=== PATIENT | male | born 1970 | race Caucasian/White ===

== ENCOUNTER 2017-03-05 16:56 | Emergency (ER) | payer BC ==
[2017-03-05] MEDS ORDERED: HYDROcodone 5MG/APAP 325MG 1 EA TAB PO ONE (17:11)
--- NOTE | 2017-03-05 17:12 | ED.PDOC ---
History of Present Illness - General Chief Complaint: Upper Extremity Injury Stated Complaint: right elbow pain Time Seen by Provider: 03/05/17 17:08 Source: patient, RN notes reviewed, Vital Signs reviewed Additional Information: Got trampled by some cattle yesterday. Has right elbow pain/swelling x 1 day. Small abrasion to right elbow as well. Otherwise, no complaints. - History of Present Illness Occurred: yesterday Pain - Upper Extremity: moderate: Elbow, right Method of Injury: direct blow Improving Factors: immobilization Worsening Factors: movement Allergies/Adverse Reactions: Allergies NO KNOWN ALLERGY Allergy (Verified 08/30/15 16:22) Home Medications: Ambulatory Orders Clonidine HCl 03/05/17 Flexeril 03/05/17 Florinef 03/05/17 Hydrocortisone 03/05/17 Review of Systems - Review of Systems Constitutional: States: no symptoms reported EENTM: States: no symptoms reported Respiratory: States: no symptoms reported Cardiology: States: no symptoms reported Gastrointestinal/Abdominal: States: no symptoms reported Genitourinary: States: no symptoms reported Musculoskeletal: States: see HPI Skin: States: no symptoms reported - -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 Neurological: States: no symptoms reported Endocrine: States: no symptoms reported Hematologic/Lymphatic: States: no symptoms reported Past Medical History (General) - Patient Medical History Hx Congestive Heart Failure: No Hx Hypertension: Yes Hx Diabetes: No Hx Other PMH: Yes - Tarrant's - Social History Hx Tobacco Use: Yes Hx Alcohol Use: No Hx Substance Use: No Hx Substance Use Treatment: No Hx Depression: No Family Medical History - Family History Mother Living Status: Still Living Hx Family Stroke: Yes Hx Family;Other: Lupus Father Family History: No Known Living Status: Still Living Physical Exam - Physical Exam General Appearance: Alert, Comfortable, No apparent distress, Well Developed, Well Groomed, Well Hydrated, Well Nourished Eyes, Ears, Nose, Throat Exam: PERRL/EOMI, normal ENT inspection, pharynx normal Neck: non-tender, full range of motion, supple, normal inspection Cardiovascular/Respiratory: normal peripheral pulses, no respiratory distress Abdominal Exam: non-tender Shoulder Exam: normal inspection, non-tender, no evidence of injury, normal ROM Elbow/Forearm Exam: bone tenderness - Right Elbow, limited ROM - Right Elbow - due to pain/swelling, soft tissue tenderness - Right Elbow, swelling - Right Elbow Wrist Exam: normal inspection, non-tender, no evidence of injury, normal ROM Hand Exam: normal inspection, non-tender, no evidence of injury, normal ROM Neuro/Tendon: normal sensation, normal motor functions, normal tendon functions , responds to pain, no evidence tendon injury Mental Status: alert, oriented x 3 Progress - Progress Progress: 03/05/17 19:19 X-ray negative for fracture/dislocation. Suspect contusion. Will treat with NSAID, ice, range of motion exercises, and f/u if unimproved in 3 to 5 days. - Results/Orders Results/Orders: 03/05/17 03/05/17 17:09 18:55 Temperature 97.5 F L Pulse Rate [ 96 H 92 H Left Brachial] Respiratory 16 20 Rate Blood Pressure 101/67 [Left Arm] O2 Sat by Pulse 98 98 Oximetry - EKG/XRAY/CT XRAY: elbow - Right elbow - no evidence of fracture/dislocation Departure - Departure Clinical Impression: Contusion of right elbow Qualifiers: Encounter type: initial encounter Qualified Code(s): S50.01XA - Contusion of right elbow, initial encounter Time of Disposition: 18:48 Disposition: Discharge to Home or Self Care Departure Forms: ED Discharge - Pt. Copy, Patient Portal Self Enrollment Instructions: DI for Contusion Referrals: Casi Mi MD [Primary Care Provider] - 1-2 Weeks Home Medications: Ambulatory Orders Clonidine HCl 03/05/17 Flexeril 03/05/17 Florinef 03/05/17 Hydrocortisone 03/05/17 Additional Instructions: Ice ad malou (at least 10 minutes 4 times a day). Gentle range of motion exercises to avoid stiffness. Follow-up if unimproved in 3 to 5 days or sooner if it gets worse. Ok to take over the counter ibuprofen 400 mg four times a day as needed for pain. Work excuse as needed for the next 3 to 5 days.
[2017-03-05 17:17] VITALS: BP 101/67; TEMP 97.5; O2SAT 98
--- NOTE | 2017-03-05 17:33 | RAD ---
EXAM DESCRIPTION: Elbow,Right 3 Views CLINICAL HISTORY: right elbow blunt injury with swelling and tender COMPARISON: None. FINDINGS: AP, lateral and oblique views of the right elbow were submitted. There is no discrete acute fracture or dislocation. Bone mineralization is within normal limits. There is no radiopaque foreign body material. IMPRESSION: No acute fracture or dislocation. Electronically signed by: Jose Tomas MD 03/05/2017 5:32 PM CDT
== END 2017-03-05 18:55 | disposition home or self-care (01) ==
LOC: ER 16:56
DX: S50.01XA Contusion of right elbow, initial encounter (principal); I10 Essential (primary) hypertension; E27.1 Primary adrenocortical insufficiency; Z87.891 Personal history of nicotine dependence; W55.29XA Other contact with cow, initial encounter; Y92.9 Unspecified place or not applicable